=== PATIENT | female | born 1990 ===

== ENCOUNTER 2017-01-08 19:11 | Emergency (ER) | payer OTHER ==
[2017-01-08 19:14] VITALS: BMI 31.9
[2017-01-08 19:34] VITALS: BP 116/68; RESP 18; TEMP 98.2; O2SAT 100
--- NOTE | 2017-01-08 19:48 | ED PDOC ---
Lower Extremity Pain/Injury Time Seen by Provider: 01/08/17 19:18 Chief Complaint (Nursing): Lower Extremity Problem/Injury Chief Complaint (Provider): Lower Extremity Problem/Injury History Per: Patient History/Exam Limitations: no limitations Onset/Duration Of Symptoms: Days (x1 month) Current Symptoms Are (Timing): Still Present Additional Complaint(s): Nerissa Gilliam is a 26 year old female presenting to the ED for an evaluation of left great toe pain occurring for 1 month prior to arrival. The patient states yesterday she tried to take her left great toe out but the pain became worse. She denies fever or trauma. PMD: Provider TBD Past Medical History Reviewed: Historical Data, Nursing Documentation, Vital Signs Vital Signs: Last Vital Signs Temp 98.2 F 01/08/17 19:30 Pulse 58 L 01/08/17 19:30 Resp 18 01/08/17 19:30 BP 116/68 01/08/17 19:30 Pulse Ox 100 01/08/17 19:30 - Medical History PMH: No Chronic Diseases - Family History Family History: States: Unknown Family Hx - Social History Current smoker - smoking cessation education provided: No Alcohol: None Drugs: Denies - Home Medications Home Medications: Ambulatory Orders Medication Instructions Recorded traMADol [Ultram] 50 mg PO Q6 PRN #16 tab 01/20/16 Cephalexin [cephalexin] 500 mg PO Q6 #28 cap 01/08/17 - Allergies Allergies/Adverse Reactions: Allergies Allergy/AdvReac Type Severity Reaction Status Date / Time No Known Allergies Allergy Verified 01/08/17 19:46 Review of Systems ROS Statement: Except As Marked, All Systems Reviewed And Found Negative Constitutional: Negative for: Fever Musculoskeletal: Positive for: Foot Pain (left great toe pain) Physical Exam - Reviewed Nursing Documentation Reviewed: Yes Vital Signs Reviewed: Yes - Physical Exam Appears: Positive for: No Acute Distress Head Exam: Positive for: ATRAUMATIC, NORMOCEPHALIC Extremity: Positive for: Tenderness (moderate tenderness to left great toenail) , Deformity (left great toenail with deformity), Swelling (moderate swelling to left great toenail), Other (minimal erythema to medial surface of nail margin ) Neurologic/Psych: Positive for: Alert, Oriented - ECG O2 Sat by Pulse Oximetry: 100 (RA) Pulse Ox Interpretation: Normal Medical Decision Making Medical Decision Making: Time: 19:18 Impression: Lower Extremity Problem/Injury Plan: Pt. evaluated by Marce, podiatry resident, who performed excision of ingrown toenail in ED. Requests that pt. be prescribed Keflex 7 days. Scribe Attestation: Documented by Vida Paris, acting as a scribe for Zane Montanez PA-C. Provider Scribe Attestation: All medical record entries made by the Scribe were at my direction and personally dictated by me. I have reviewed the chart and agree that the record accurately reflects my personal performance of the history, physical exam, medical decision making, and the department course for this patient. I have also personally directed, reviewed, and agree with the discharge instructions and disposition. Disposition - Clinical Impression Clinical Impression: Ingrown toenail - Patient ED Disposition Is Patient to be Admitted: No - Disposition Referrals: Podiatry Clinic [Outside] Disposition: Routine/Home Disposition Time: 21:20 Condition: STABLE Prescriptions: Cephalexin [cephalexin] 500 mg PO Q6 #28 cap Instructions: Ingrown Nail (ED) Forms: [employer] (Moldovan) Print Language: LUX[place]
[2017-01-08] MEDS ORDERED: Lidocaine 1% Inj (20ml) IJ ONE (20:11)
[2017-01-08] MEDS ORDERED: Lidocaine 1% Inj (20ml) ONE (20:22)
--- NOTE | 2017-01-08 20:37 | CP.PCM.CON ---
History of Present Illness - History of Present Illness History of Present Illness: 26 y/o female seen in ED by podiatry for ingrown toenails of both big toenails and left 2nd toenail. Pt states this is a recurring problem but that she has never seeked medical treatment for it. Pt states she usually cuts them down herself and they resolve. However, pt states when she tried to cut the two nails on the left foot yesterday, they got more red and swollen overnight and she noticed odd colored drainage coming from the toes. Pt denies any F/C/N/V/ SOB. PMH: denies PSH: All: NKDA Social: denies EtOH, cigarette, or drug use Review of Systems - Review of Systems All systems: reviewed and no additional remarkable complaints except (per HPI) Past Patient History - Past Social History Alcohol: None Drugs: Denies - PSYCHIATRIC Hx Substance Use: No - SURGICAL HISTORY Hx Section: Yes (July 2014) Meds Home Medications: Home Medication List Medication Instructions Recorded Confirmed Type Cephalexin [cephalexin] 500 mg PO Q6 #28 cap 01/08/17 Rx Allergies/Adverse Reactions: Allergies Allergy/AdvReac Type Severity Reaction Status Date / Time No Known Allergies Allergy Verified 01/08/17 19:46 Physical Exam - Constitutional Appears: Well, Non-toxic, No Acute Distress - Extremities Exam Additional comments: Vasc: DP/PT pulses palpable 2/4. Temperature gradient warm to cool. Localized edema to medial aspect of L hallux, lateral aspect of L 2nd digit distally and lateral aspect of R hallux. Derm: Granuloma with localized erythema noted to medial aspect of L hallux toenail. No malodor, no undermining, no tunneling, no purulence. Granuloma with localized erythema noted to lateral aspect of L 2nd digit toenail with yellow purulent discharged expressed with application of pressure. No malodor, no undermining, no tunneling. Localized erythema to lateral aspect of R hallux. No granuloma, no purulence, no malodor, no undermining, no tunneling. Neuro: protective sensation grossly intact B/L Ortho: Tenderness to palpation of medial and distal aspects of L hallux and lateral aspect of R distal hallux. Minimal tenderness on palpation of lateral aspect of L 2nd digit distally. - Neurological Exam Neurological exam: Alert, Oriented x3 - Psychiatric Exam Psychiatric exam: Normal Affect, Normal Mood Results - Vital Signs Recent Vital Signs: Last Vital Signs Temp 98.2 F 01/08/17 19:30 Pulse 58 L 01/08/17 19:30 Resp 18 01/08/17 19:30 BP 116/68 01/08/17 19:30 Pulse Ox 100 01/08/17 19:50 Assessment & Plan - Assessment and Plan (Free Text) Assessment: 26 y/o female with ingrown toenails of 1st and 2nd digits on left foot and 1st digit on right foot Plan: Pt seen and evaluated in ED Discussed plan in detail with attending Dr. Salinas Explained to patient the possible treatment options including antibiotics and partial nail avulsion Reviewed the risks and benefits of the procedure and addressed all questions and concerns with patient Pt agreeable to nail avulsion procedure at this time 12 cc Lidocaine 1% plain injected into L hallux in local block fashion, proximal to L 2nd digit in V digital block fashion, and R hallux in local block fashion Partial nail avulsions performed to medial L hallucal toenail, lateral L 2nd digit toenail and lateral R hallucal toenails using sterile freer, [place] anvil , curette and hemostat Applied Bacitracin, 4x4 gauze and Coban to L 1st and 2nd digits and R 1st digit Pt tolerated procedure well without incident Pt instructed to keep dressings clean dry and intact for 48 hours, at which time she can remove them and change daily with Bacitracin and bandaid Pt instructed to do daily Epsom salt soaks beginning in 48 hours Pt given Keflex x 7days by ED Pt to follow up in [facility] Podiatry clinic within one week
[2017-01-08 21:40] VITALS: PULSE 63
== END 2017-01-08 21:39 | disposition home or self-care (01) ==
LOC: H.ER 19:11
DX: L60.0 Ingrowing nail (principal)